=== PATIENT | female | born 1945 | race Caucasian/White ===

== ENCOUNTER 2019-03-02 08:09 | Day surgery (SDC) | payer OTHER, BC ==
[2019-02-24 12:59] VITALS: BMI 25.0
[2019-03-02] MEDS ORDERED: LIDOCAINE HCL/PF 2% SDV 5ML VIAL ONE (09:12)
[2019-03-02 09:47] VITALS: TEMP 98
[2019-03-02 10:10] VITALS: BP 110/62
[2019-03-02 10:43] VITALS: PULSE 58
== END 2019-03-02 10:30 | disposition home or self-care (01) ==
LOC: FASU-ENDO 08:09
PROVIDERS: ATTEND Internal Medicine Gastroenterology
PROC: 0DJD8ZZ Inspection of Lower Intestinal Tract, Via Natural or Artificial Opening Endoscopic (ICD-10-PCS; principal; 2019-03-02 09:14)
DX: Z12.11 Encounter for screening for malignant neoplasm of colon (principal); Z83.71 Family history of colonic polyps